=== PATIENT | male | born 1995 | race Caucasian/White ===

== ENCOUNTER 2022-02-03 12:13 | Emergency (ER) | payer SELFPAY | END 2022-02-03 14:15 | disposition left against medical advice (07) | LOC: JD.ED 12:13 | DX: Z53.21 Procedure and treatment not carried out due to patient leaving prior to being seen by health care provider (principal) ==

== ENCOUNTER 2022-11-17 16:12 | Emergency (ER) | payer SELFPAY ==
[2022-11-17] MEDS ORDERED: Morphine 4 MG/ML Syringe IVPUSH ONE (17:37)
[2022-11-17] MEDS ORDERED: Acetaminophen/HYDROcodone 325-5 MG Tab PO ONE (18:02)
[2022-11-17 18:16] LABS: BASOPHILS ABSOLUTE AUTO 0.03 K/mm3 (0.01-0.08); BASOPHILS PERCENT AUTO 0.2 % (0.1-1.2); EOSINOPHILS ABSOLUTE AUTO 0.43 K/mm3 (0.04-0.54); EOSINOPHILS PERCENT AUTO 2.6 (0.8-7.0); HEMATOCRIT 47.2 % (40.1-51.0); IMMATURE GRAN ABSOLUTE AUTO 0.05 K/mm3 (0.00-0.10); IMMATURE GRAN PERCENT AUTO 0.3 % (<=1.0); LYMPHOCYTES PERCENT AUTO 17.6 % (21.8-53.1); MEAN CORPUSCULAR HEMOGLOBIN 30.5 pg (25.7-32.2); MEAN CORPUSCULAR HGB CONC 33.9 g/dl (32.2-35.5); MEAN CORPUSCULAR VOLUME 89.9 fl (79.0-92.2); MEAN PLATELET VOLUME 9.4 fl (9.4-12.3); MONOCYTES ABSOLUTE AUTO 1.71 K/mm3 (0.30-0.82); MONOCYTES PERCENT AUTO 10.4 % (5.3-12.2); NEUTROPHILS ABSOLUTE AUTO 11.36 K/mm3 (1.78-5.38); NEUTROPHILS PERCENT AUTO 68.9 % (34.0-67.9); PLATELET COUNT,PLT 238 K/mm3 (163-337); RED BLOOD CELL COUNT 5.25 M/mm3 (4.63-6.08); WHITE BLOOD CELL COUNT,WBC 16.48 K/mm3 (4.23-9.07)
[2022-11-17] MEDS ORDERED: Clindamycin Phosphate in D5W 900 MG in Premix Bag 1 BAG IV ONE ×2 (18:20)
[2022-11-17] MEDS ORDERED: Sulfamethoxazole/Trimethoprim 800-160 MG Tab PO ONE (18:20)
[2022-11-17 18:40] LABS: ALBUMIN 3.6 g/dl (3.4-5.0); ANION GAP 11.6 (5-15); BILIRUBIN TOTAL 0.2 mg/dL (0.2-1.0); BUN/CREATININE RATIO 7.9 (14-18); C-REACTIVE PROTEIN 0.7 mg/dL (<1.0); CALCIUM 8.7 mg/dL (8.5-10.1); CREATININE 1.4 mg/dL (0.7-1.3); EST CRCL DRUG DOSING (CG) 80.39 mL/min; POTASSIUM,K 3.6 mEq/L (3.5-5.1); PROTEIN TOTAL,TP 7.1 g/dl (6.4-8.2)
[2022-11-17 18:43] LABS: SLIDE REVIEW ABNORMAL SMEAR
== END 2022-11-17 19:34 | disposition home or self-care (01) ==
LOC: JD.ED 16:12
DX: L08.9 Local infection of the skin and subcutaneous tissue, unspecified (principal); F17.210 Nicotine dependence, cigarettes, uncomplicated
CPT/HCPCS: 36415; 73130; 80053; 85025; 86140; 96365; 99283; A9270; J3490; 99284

== ENCOUNTER 2023-02-09 13:54 | Emergency (ER) | payer BC ==
[2023-02-09] MEDS ORDERED: Sulfamethoxazole/Trimethoprim 800-160 MG Tab PO ONE (14:14)
== END 2023-02-09 14:39 | disposition home or self-care (01) ==
LOC: JD.ED 13:54
DX: L03.012 Cellulitis of left finger (principal); B96.89 Other specified bacterial agents as the cause of diseases classified elsewhere; F17.210 Nicotine dependence, cigarettes, uncomplicated
CPT/HCPCS: 99283; A9270

== ENCOUNTER 2023-11-02 15:34 | Emergency (ER) | payer SELFPAY | END 2023-11-02 16:04 | disposition left against medical advice (07) | LOC: JD.ED 15:34 | DX: Z53.21 Procedure and treatment not carried out due to patient leaving prior to being seen by health care provider (principal) ==

== ENCOUNTER 2023-11-02 21:07 | Emergency (ER) | payer SELFPAY | END 2023-11-02 22:30 | LOC: JD.ED 21:07 | DX: Z53.21 Procedure and treatment not carried out due to patient leaving prior to being seen by health care provider (principal) ==